=== PATIENT | female | born 1950 | race Caucasian/White ===

== ENCOUNTER → 2017-07-09 | Outpatient (CLI) | payer BC ==
[~2017-07-09] MED LIST: ASPI81TA28 PO; ATOR10TA82 PO; COEN1CAP28 PO; GLC/500 PO; LISI40TA PO
--- NOTE | 2017-07-10 13:43 | MAMMOGRAPHY REPORT ---
BILATERAL DIGITAL SCREENING MAMMOGRAM TOMOSYNTHESIS WITH CAD: 07/09/2017 CLINICAL HISTORY: Routine screening. TECHNIQUE: Breast tomosynthesis in addition to standard 2D mammography was performed. Current study was also evaluated with a Computer Aided Detection (CAD) system. COMPARISON: No prior exams were available for comparison. BREAST COMPOSITION: There are scattered areas of fibroglandular density in both breasts. FINDINGS: There are asymmetries/masses in the left lateral and medial breast, for which spot karen april tomosynthesis views and possible breast ultrasound are recommended for further evaluation, given no priors available for comparison. The remainder of both breasts demonstrate multiple small round/oval circumscribed benign-appearing ma sses bilaterally, which are considered benign given the multiplicity and bilaterality likely represen t cysts. IMPRESSION: ACR BI-RADS CATEGORY 0: INCOMPLETE EVALUATION: NEED ADDITIONAL IMAGING EVALUATION Left breast masses/asymmetries, for which additional imaging evaluation is recommended. The patient will be called to schedule an appointment. Approximately 10% of breast cancers are not detected with mammography. A negative mammographic report should not delay biopsy if a clinically suggestive mass is present. Sena Call M.D. ah/:07/09/2017 16:07:57 Industrial Photographer: Hernandez WARNER(Ramirez)([place]), [facility] letter sent: Addl Imaging 0 BI-RADS Code: ACR BI-RADS Category 0: Incomplete Evaluation: Need Additional Imaging Evaluation
== END | disposition home or self-care (01) ==
LOC: C.MAMM 13:31
PROVIDERS: ATTEND Family Medicine
DX: Z12.31 Encounter for screening mammogram for malignant neoplasm of breast (principal); N63.20 Unspecified lump in the left breast, unspecified quadrant; R92.8 Other abnormal and inconclusive findings on diagnostic imaging of breast

== ENCOUNTER → 2017-07-22 | Outpatient (CLI) | payer BC ==
--- NOTE | 2017-07-25 12:03 | MAMMOGRAPHY REPORT ---
UNILATERAL LEFT DIGITAL DIAGNOSTIC MAMMOGRAM TOMOSYNTHESIS AND TARGETED LEFT ULTRASOUND: 07/22/2017 CLINICAL HISTORY: 67-year-old woman called back from screening mammography for asymmetries and masses in both the medial and lateral left breast. Prior mammograms were performed greater than 10 years a go and are unobtainable. TECHNIQUE: Spot compression tomosynthesis CC and MLO views of the left breast were obtained. COMPARISON: Comparison is made to exam dated: 07/09/2017 mammogram - [facility]. BREAST COMPOSITION: There are scattered areas of fibroglandular density in the left breast. FINDINGS: There are at least 3 lobulated and circumscribed masses in the lower inner middle one third of the left breast, measuring 12 mm, 11 mm and 6 mm in size. No associated microcalcification or ar chitectural distortion. Asymmetries in the lateral breast partially effaces on additional spot compr ession tomosynthesis imaging and there is no definite evidence of a persistent mass or architectural distortion in the lateral left breast. Nevertheless, further evaluation with ultrasound was performe d throughout the entire left breast. Targeted ultrasound performed the left breast demonstrates an oval parallel mixed isoechoic and anech oic solid versus cystic mass in the 12:00 axis, 1 cm from the nipple, measuring 6.4 x 3.6 x 5.8 mm. There is a tiny predominantly anechoic cystic appearing mass adjacent to a visible duct in the 4:00 p eriareolar left breast measuring 3.2 x 2.1 x 3.2 mm. There is a conglomerate of anechoic and hypoech oic solid versus cystic masses in the 6:00 periareolar left breast measuring approximately 11.3 x 4.3 x 9.3 mm in conglomerate. A benign anechoic simple cyst is identified in the 8:00 left breast, imani areolar region, measuring 8.9 x 4.5 x 6.7 mm. No suspicious solid mass is identified on ultrasound. IMPRESSION: ACR-BI-RADS CATEGORY 3: PROBABLY BENIGN, TARGETED ULTRASOUND ACR-BI-RADS CATEGORY 3: PRO BABLY BENIGN 1. There are persistent masses in the medial left breast thought to correlate with benign-appearing cystic and solid versus cystic masses on ultrasound which could represent complicated cysts. However given that only the cyst in the 8:00 periareolar left breast meets the criteria for a simple cyst, a short interval follow-up left diagnostic tomosynthesis mammogram and repeat targeted ultrasound with attention to the 12:00, 4:00 and 6:00 axes is recommended. 2. Asymmetries in the lateral left breast effaced with additional tomosynthesis spot compression vie ws and most likely represent normal overlapping tissue. Nevertheless six-month follow-up left diagno stic tomosynthesis mammograms and repeat ultrasound are recommended to ensure stability given that no prior exams are available for comparison. These results and recommendations were discussed with the patient at the time of the exam. Approximately 10% of breast cancers are not detected with mammography. A negative mammographic report should not delay biopsy if a clinically suggestive mass is present. Paige Zamudio M.D. ay/:07/22/2017 12:07:24 Kennel Keeper: Kelley WARNER(Ramirez)([place]), [facility] letter sent: Follow Up Recommended 3 BI-RADS Code: ACR-BI-RADS Category 3: Probably Benign Ultrasound BI-RADS: ACR-BI-RADS Category 3: Pr obably Benign
== END | disposition home or self-care (01) ==
LOC: C.MAMM 08:56
PROVIDERS: ATTEND Family Medicine
DX: N64.89 Other specified disorders of breast (principal); N63.20 Unspecified lump in the left breast, unspecified quadrant

== ENCOUNTER → 2018-01-21 | Outpatient (CLI) | payer BC, OTHER ==
--- NOTE | 2018-01-22 15:14 | MAMMOGRAPHY REPORT ---
UNILATERAL LEFT DIGITAL DIAGNOSTIC MAMMOGRAM TOMOSYNTHESIS WITH CAD AND LEFT ULTRASOUND: 01/21/2018 CLINICAL HISTORY: Short interval follow-up of left breast masses. The patient reports no lumps or oth er complaints. TECHNIQUE: The study was acquired using full field digital technology and interpreted from soft copy. Breast tomosynthesis in addition to standard 2D mammography was performed. Current study was also ev aluated with a Computer Aided Detection (CAD) system. Left CC and MLO 2D and tomosynthesis images we re obtained. COMPARISON: Comparison is made to exams dated: 07/22/2017 mammogram, 07/09/2017 mammogram, and 07/22/2017 ultrasound - [facility]. BREAST COMPOSITION: There are scattered areas of fibroglandular density in left breast. FINDINGS: There is been no significant interval change in the appearance of the left breast mammographically co mpared to prior exams. Partially circumscribed and partially obscured lobulated masses in the left m edial breast and nodular asymmetries in the left lateral breast are not significantly changed compare d to the June 2017 exam. There are no new masses, calcifications, or areas of architectural disto rtion noted within the left breast. Targeted ultrasound was performed of the area of the left breast masses for which follow-up was recom mended. In the left 12:00 breast, 1 cm from the nipple, there is an oval mixed isoechoic and anechoi c 7 x 3 x 7 mm mass, which is not significantly changed compared to the July 2017 exam and is pro bably benign and likely represents a microcystic cluster. In the left 6:00 periareolar breast, there is an oval anechoic benign simple cyst measuring 8 x 9 mm. Adjacent to this is a mixed isoechoic an d anechoic mass which measures 1.3 x 0.9 cm; this appears similar to the Jul 2017 exam and likely rep resents fibrocystic changes. Another similar-appearing mixed isoechoic and anechoic mass measuring 8 x 7 mm is seen within the left 4:00 periareolar breast, which is probably benign and likely represen ts a microcystic cluster. Benign focal duct ectasia is seen within the left 4:00 periareolar breast measuring 3 mm. IMPRESSION: ACR-BI-RADS CATEGORY 3: PROBABLY BENIGN, ULTRASOUND ACR-BI-RADS CATEGORY 3: PROBABLY OSMANY GN Numerous masses seen within the left breast are stable compared to the July 2017 exam and are pro bably benign and likely represent fibrocystic changes. Recommend bilateral diagnostic tomosynthesis mammogram and targeted ultrasound in 6 months, to reevaluate the left breast masses and for routine m ammography of the right breast. The patient has been verbally notified of the results. Some breast cancers are not detected with mammography. A negative mammographic report should not luiza y biopsy if a clinically suggestive mass is present. Sena Call M.D. ah/:01/21/2018 14:16:05 Picking Crew Supervisor: Kelley Stacy, [facility] letter sent: Follow Up Recommended 3 OVERALL STUDY BIRADS: 3 Probably benign
== END | disposition home or self-care (01) ==
LOC: C.MAMM 10:29
PROVIDERS: ATTEND Family Medicine
DX: N63.20 Unspecified lump in the left breast, unspecified quadrant (principal)